=== PATIENT | male | born 2000 | race Two or more races ===

== ENCOUNTER 2019-06-26 19:25 | Emergency (ER) | payer OTHER ==
[2019-06-26] MEDS ORDERED: methylPREDNISolone 125 MG* 2 ML VIAL IV ONE (19:36)
[2019-06-26] MEDS ORDERED: EPINEPHRINE 1 MG/ML 1 ML VIAL IM ONE (19:36)
[2019-06-26] MEDS ORDERED: Famotidine IV* 10 MG/ML 2 ML (20 mg) IV SLOW PU ONE (19:37)
[2019-06-26] MEDS ORDERED: diPHENhydraMINE IV* 50 MG/ML 1 ml VIAL (BENADRYL) SLOW PUSH ONE (19:37)
--- NOTE | 2019-06-26 19:38 | ED ---
Allergic Reaction/Systemic - HPI Summary HPI Summary: This patient is a 18 year old male presenting to [facility] with a chief complaint of allergic reaction. The patient was stung by a bee at the right forehead and he is allergic to bee venom. He presents with a diffuse maculopapular rash and swelling around the forehead. He took 2 Claritin tablets DRY CLEANER HAND. The patient denies syncope. - History of Current Complaint Hx Obtained From: Patient Onset/Duration: Started minutes ago Severity Initially: Mild Severity Currently: Mild Pain Intensity: 0 Pain Scale Used: 0-10 Numeric Location: Diffuse Character: Swelling, Pruritus - Allergies/Home Medications Allergies/Adverse Reactions: Allergies Allergy/AdvReac Type Severity Reaction Status Date / Time ciprofloxacin [From Cipro] Allergy Rash Verified 06/26/19 20:02 PMH/Surg Hx/FS Hx/Imm Hx Endocrine/Hematology History: Denies: Hx Diabetes Cardiovascular History: Denies: Hx Coronary Artery Disease Infectious Disease History: No Infectious Disease History: Denies: Traveled Outside the [place] in Last 30 Days - Family History Known Family History: Positive: Non-Contributory Negative: Seizure Disorder - Social History Occupation: Student Lives: With Family Review of Systems Positive: Edema - periorbital Positive: Rash All Other Systems Reviewed And Are Negative: Yes Physical Exam - Summary Physical Exam Summary: VITAL SIGNS: Reviewed. GENERAL: Patient is a well-developed and nourished MALE who is lying comfortable in the stretcher. Patient is not in any acute respiratory distress. HEAD AND FACE: No signs of trauma. No ecchymosis, hematomas or skull depressions. No sinus tenderness. EYES: PERRLA, EOMI x 2, No injected conjunctiva, no nystagmus. EARS: Hearing grossly intact. Ear canals and tympanic membranes are within normal limits. MOUTH: Oropharynx within normal limits. NECK: Supple, trachea is midline, no adenopathy, no JVD, no carotid bruit, no c- spine tenderness, neck with full ROM. CHEST: Symmetric, no tenderness at palpation LUNGS: Clear to auscultation bilaterally. No wheezing or crackles. CVS: Regular rate and rhythm, S1 and S2 present, no murmurs or gallops appreciated. ABDOMEN: Soft, non-tender. No signs of distention. No rebound no guarding, and no masses palpated. Bowel sounds are normal. EXTREMITIES: FROM in all major joints, no edema, no cyanosis or clubbing. NEURO: Alert and oriented x 3. No acute neurological deficits. Speech is normal and follows commands. SKIN: Dry and warm. Diffuse maculopapular rash. Bilateral periorbital swelling. Triage Information Reviewed: Yes Vital Signs On Initial Exam: Initial Vitals Temp Pulse Resp BP Pulse Ox 99.1 F 145 28 112/90 98 06/26/19 19:27 06/26/19 19:27 06/26/19 19:27 06/26/19 19:27 06/26/19 19:27 Vital Signs Reviewed: Yes Diagnostics - Vital Signs Vital Signs Temp Pulse Resp BP Pulse Ox 06/26/19 19:27 99.1 F 145 28 112/90 98 - Laboratory Lab Statement: Any lab studies that have been ordered have been reviewed, and results considered in the medical decision making process. Allergic Reaction Course/Dx - Course Course Of Treatment: This patient is a 18 year old male presenting to [facility] with a chief complaint of allergic reaction. The patient was stung by a bee at the right forehead and he is allergic to bee venom. Physical exam was remarkable for a diffuse maculopapular rash and bilateral periorbital swelling. The patient was given 0.3 mg epinephrine IM, 25 mg Benadryl, 20 mg Famotidine IV , and 125 mg Solumedrol IV to treat the reaction. Symptoms resolved following administration of medications. A plan for discharge was discussed with the patient and he was agreeable with this plan. - Diagnoses Provider Diagnoses: Allergic reaction to bee sting Discharge - Sign-Out/Discharge Documenting (check all that apply): Patient Departure - Discharge Patient Received Moderate/Deep Sedation with Procedure: No - Discharge Plan Condition: Stable Disposition: HOME Prescriptions: EPINEPHrine [Epipen 2-Dustin] 0.3 mg IM SEE INSTRUCTIONS PRN #1 inj PRN Reason: Allergy Symptoms hydrOXYzine HCL TAB* [Atarax 25 MG TAB*] 25 mg PO TID PRN #14 tab PRN Reason: Itching predniSONE TAB* [Deltasone TAB*] 50 mg PO DAILY #5 tab Patient Education Materials: General Allergic Reaction (ED) Referrals: No Primary Care Phys,NOPCP [Primary Care Provider] - Additional Instructions: Return to ED with new or worsening symptoms. - Attestation Statements Document Initiated by Scribe: Yes Documenting Scribe: Salvador Garcia Provider For Whom Scribe is Documenting (Include Credential): Chapito Briggs MD Scribe Attestation: Salvador Nevarez, scribed for Chapito Briggs MD on 06/26/19 at 2042. Status of Scribe Document: Ready
[2019-06-26] MEDS ORDERED: Famotidine IV* 10 MG/ML 2 ML (20 mg) ONE (19:44)
[2019-06-26] MEDS ORDERED: diPHENhydraMINE IV* 50 MG/ML 1 ml VIAL (BENADRYL) ONE (19:44)
[2019-06-26] MEDS ORDERED: methylPREDNISolone 125 MG* 2 ML VIAL ONE (19:44)
[2019-06-26] MEDS ORDERED: NS 0.9% 1000 ML** 1,000 ML IV.FLUID IV ONE (19:46)
[2019-06-26 20:35] VITALS: BP 120/60
== END 2019-06-26 20:54 | disposition home or self-care (01) ==
LOC: ED 19:25
DX: T63.441A Toxic effect of venom of bees, accidental (unintentional), initial encounter (principal); Y92.9 Unspecified place or not applicable; Z88.1 Allergy status to other antibiotic agents
CPT/HCPCS: 96361; 96372; 96374; 96375; 99284; J1200; J2930